=== PATIENT | male | born 1990 | race Caucasian/White ===

== ENCOUNTER 2016-11-06 00:03 | Observation (INO) | payer BC ==
[2016-11-06] MEDS ORDERED: NS 0.9% 1000 ML* 1,000 ML IV SCH (00:15)
[2016-11-06] MEDS ORDERED: NS 0.9% 1000 ML* 1,000 ML IV ONE ×3 (00:19→02:42)
[2016-11-06] MEDS ORDERED: Morphine INJ* 4 MG/ML 1 ML SYRINGE IV ONE ×2 (00:19→00:43)
[2016-11-06] MEDS ORDERED: Ondansetron INJ* 2 MG/ML VIAL IV ONE (00:19)
[2016-11-06] MEDS ORDERED: Nitroglycerin TAB 0.4 MG* 0.4 MG TAB SL ONE ×2 (00:26→00:43)
[2016-11-06 00:45] LABS: ALT 22 U/L (7-52); AST 25 U/L (13-39); Albumin 4.7 g/dL (3.2-5.2); Alkaline Phosphatase 55 U/L (34-104); BUN/Creatinine Ratio 11.4 (8-20); Blood Urea Nitrogen 13 mg/dL (6-24); C Reactive Protein 1.91 mg/L (< 5.00); Calcium 9.7 mg/dL (8.6-10.3); Chloride 106 mmol/L (101-111); Creatine Kinase 340 U/L (10-223); EGFR African American 99.9 (>60); EGFR Non-African American 77.6 (>60); Globulin 2.5 g/dL (2-4); Glucose 79 mg/dL (70-100); Lipase 26 U/L (11.0-82.0); Magnesium 2.5 mg/dL (1.9-2.7); Potassium 3.6 mmol/L (3.5-5.0); Sodium 138 mmol/L (133-145); Total Protein 7.2 g/dL (6.4-8.9)
[2016-11-06] MEDS ORDERED: LORazepam INJ* 2 MG/ML 1 ML VIAL IV ONE (00:46)
[2016-11-06 00:47] LABS: Anion Gap 19 mmol/L (2-11); CO2 Carbon Dioxide 13 mmol/L (22-32)
[2016-11-06 00:53] LABS: TSH (Thyroid Stimulating Horm) 3.11 mcIU/mL (0.34-5.60)
[2016-11-06 01:21] LABS: Hematocrit 49 % (42-52); Hemoglobin 16.6 g/dl (14.0-18.0); Mean Corpuscular HGB Conc 34 g/dl (31-36); Mean Corpuscular Hemoglobin 30 pg (27-31); Mean Corpuscular Volume 87 fL (80-94); Mean Platelet Volume 8 um3 (7.4-10.4); Red Blood Count 5.58 10^6/ul (4.0-5.4); Red Cell Distribution Width 14 % (10.5-15); White Blood Count 8.6 10^3/ul (3.5-10.8)
[2016-11-06 01:39] LABS: Acetaminophen < 15 mcg/mL; Alcohol 111 mg/dL (<10); Salicylate < 2.50 mg/dL (<30)
[2016-11-06] MEDS ORDERED: Iohexol 350* (CONTRAST) 500 ML MDV IV ONE (02:06)
[2016-11-06 02:35] LABS: Urine Bacteria Absent (Absent); Urine Bilirubin Negative (Negative); Urine Glucose Negative (Negative); Urine Nitrite Negative (Negative)
[2016-11-06 02:46] LABS: Benzodiazepine Urine Screen None Detected (None Detect)
[2016-11-06 03:37] LABS: BUN/Creatinine Ratio 13.2 (8-20); Calcium 7.7 mg/dL (8.6-10.3); EGFR African American 159.4 (>60); Potassium 3.8 mmol/L (3.5-5.0)
[2016-11-06 03:39] LABS: Troponin I 0.03 ng/mL (<0.04)
[2016-11-06] MEDS ORDERED: Ketorolac INJ* 30 MG/ML 1 ML VIAL IV ONE (04:36)
[2016-11-06 06:45] LABS: BUN/Creatinine Ratio 10.8 (8-20); Calcium 8.1 mg/dL (8.6-10.3); EGFR African American 126.3 (>60); EGFR Non-African American 98.2 (>60); Potassium 4.1 mmol/L (3.5-5.0)
[2016-11-06 06:48] LABS: Troponin I 0.04 ng/mL (<0.04)
--- NOTE | 2016-11-06 07:48 | RAD ---
HISTORY: Chest pain COMPARISONS: April 24, 2015 VIEWS:1: Single frontal portable view of the chest at 12:38 AM FINDINGS: LINES AND TUBES: None. CARDIOMEDIASTINAL SILHOUETTE: The cardiomediastinal silhouette is normal for portable technique. PLEURA: The costophrenic angles are sharp. No pleural abnormalities are noted. LUNG PARENCHYMA: The lungs are clear. ABDOMEN: The upper abdomen is clear. There is no subphrenic gas. BONES AND SOFT TISSUES: No bone or soft tissue abnormalities are noted. IMPRESSION: NO ACTIVE CARDIOPULMONARY DISEASE.
--- NOTE | 2016-11-06 07:59 | RAD ---
HISTORY: Chest pain COMPARISONS: March 27, 2013 TECHNIQUE: Multiple contiguous axial CT scans of the chest were obtained after the administration of nonionic intravenous contrast, timed to the pulmonary arterial phase of contrast enhancement.. Coronal and sagittal multiplanar reformations are also submitted for review. FINDINGS: NECK AND THYROID: The lower neck and thyroid are unremarkable. CHEST WALL: There is a 1.4 cm short axis left axillary lymph node HEART AND PERICARDIUM: The heart is unremarkable. AORTA AND PULMONARY VASCULATURE: There is no pulmonary arterial filling defect to suggest pulmonary embolism. There is no linear filling defect within the aorta to suggest aortic dissection. MEDIASTINUM: There is no mediastinal lymphadenopathy by size criteria. MARIAJOSE: There is no hilar lymphadenopathy by size criteria. AIRWAY AND ESOPHAGUS: The airway is unremarkable, without endobronchial filling defect. The esophagus is grossly normal. LUNG PARENCHYMA: The lungs are clear. PLEURA: No pleural abnormalities are noted. UPPER ABDOMEN: The spleen is at the upper normal in size. BONES AND SOFT TISSUES: No bone or soft tissue abnormalities are noted. OTHER: None. IMPRESSION: 1. NO PULMONARY ARTERIAL FILLING DEFECT TO SUGGEST PULMONARY EMBOLISM. 2. ENLARGED LEFT AXILLARY LYMPH NODE. THE SPLEEN IS AT THE UPPER LIMITS OF NORMAL IN SIZE.
[2016-11-06] MEDS ORDERED: Al Hydrox/Mg Hydrox/Simet LIQ* 30 ML UDC PO PRN (09:14)
[2016-11-06] MEDS ORDERED: Acetaminophen TAB* 325 MG PO PRN (09:14)
--- NOTE | 2016-11-06 09:16 | ECHO ---
Patient: SARA AYALA [facility] Rec#: [id number] : 1990 Date: 11/06/2016 Age: 26y Height: 172.72 cm / 68.0 in Weight: 81.65 kg / 180.0 lbs Sex: M BSA: 1.95 Room#: ED 15 Admit Date#: 11/06/2016 Type: Outpatient Referring: Nicolás Abbott MD Reading: Diana Hall MD [employer]: Kirsten Larsen,RDCS,RDMS CC: Amol Casillas MD Transthoracic Echocardiogram Indication: CP, Abn Troponin BP: 112/66 HR: 87 Rhythm: NSR Findings History: CO, DVT, smoker Technical Comments: The study quality is fair. Completed 904 Left Ventricle: The left ventricular chamber size is normal. Mild concentric left ventricular hypertrophy is observed. Global left ventricular wall motion and contractility are within normal limits. The estimated ejection fraction is 50-55%. Normal left ventricular diastolic filling is observed. Left Atrium: The left atrial chamber size is normal. Right Ventricle: The right ventricular chamber size and systolic function are within normal limits. Right Atrium: The right atrial cavity size is normal. Aortic Valve: There is no evidence of aortic valve thickening.Leaflets are thin and show good excursion, can't confirm if trileaflet. Systolic excursion of the aortic valve is normal. There is no evidence of aortic regurgitation. There is no evidence of aortic stenosis. Mitral Valve: The mitral valve leaflets appear normal. There is no evidence of mitral regurgitation. There is no evidence of mitral stenosis. Tricuspid Valve: The tricuspid valve leaflets are normal. There is trace tricuspid regurgitation. Unable to estimate the right ventricular systolic pressure. Pulmonic Valve: The pulmonic valve appears normal. There is mild to moderate pulmonic regurgitation. Pericardium: There is no significant pericardial effusion. Aorta: The aortic root appears normal. There is no dilatation of the aortic arch. Pulmonary Artery: The main pulmonary artery appears normal. Venous: The inferior vena cava appears normal in size. There is a greater than 50% respiratory change in the inferior vena cava dimension. Conclusions Mild concentric left ventricular hypertrophy is observed. Global left ventricular wall motion and contractility are within normal limits. The estimated ejection fraction is 50-55%. Normal left ventricular diastolic filling is observed. The right ventricular chamber size and systolic function are within normal limits. All valve leaflets are thin with good excursion. There is mild to moderate pulmonic regurgitation. Compared with prior echo of 03/28/13, the degree of PI estimated higher, 2013 study confirmed aortic valve trileaflet, LVH is new, systolic function is stable. Measurements Name Value Normal Range RVIDd (AP) 2D 3.1 cm (0.9 - 2.6) RVDdMajor (2D) 3.7 cm (2.2 - 4.4) RAd ISD 4CH 4.5 cm (3.4 - 4.9) RA (A4C)W 4.1 cm (2.9 - 4.6) IVSd (2D) 1.1 cm (0.6 - 1) LVPWd (2D) 1.1 cm (0.6 - 1) LVIDd (2D) 4.4 cm (3.6 - 5.4) LVIDs (2D) 3.3 cm - LV FS (2D) 26 % (25 - 45) Aortic Annulus 2 cm (1.4 - 2.6) Ao root diameter (2D) 2.7 cm (2.1 - 3.5) Ascending Ao 2.5 cm (2.1 - 3.4) Aortic arch 2.6 cm (1.8 - 3.4) LA dimension (AP) 2D 3.4 cm (2.3 - 3.8) LAd ISD 4CH 5.2 cm (2.9 - 5.3) LA ISD 4CH W 4.2 cm (2.5 - 4.5) Name Value Normal Range LA ESV SP 4CH (A/L) 55.04 ml - LA ESV SP 2CH (A/L) 40.35 ml - LA ESV BP (A/L) 49.5 ml - LA ESV BP (A/L) index 25.3 ml/m2 - LA ESV SP 4CH (MOD) 52.56 ml - LA ESV SP 2CH (MOD) 36.53 ml - Name Value Normal Range MV E-wave Vmax 1 m/sec - MV deceleration time 170.5 msec - MV A-wave Vmax 0.4 m/sec - MV E:A ratio 2.5 ratio - P. vein S-wave Vmax 0.4 m/sec - P. vein D-wave Vmax 0.6 m/sec - P. vein S:D Vmax ratio 0.7 ratio - P. vein A-wave duration 129.2 msec - LV septal e' Vmax 0.14 m/sec - LV lateral e' Vmax 0.13 m/sec - LV E:e' septal ratio 7.1 ratio - LV E:e' lateral ratio 7.7 ratio - Name Value Normal Range AV Vmax 1.5 m/sec - AV VTI 31.7 cm - AV peak gradient 9 mmHg - AV mean gradient 5.4 mmHg - LVOT Vmax 1.1 m/sec - LVOT VTI 22.5 cm - LVOT peak gradient 5 mmHg - LVOT mean gradient 3.2 mmHg - HENRIQUE Vmax 1 m/sec - Name Value Normal Range RAP 8 mmHg - IVC diameter 1.9 cm - Name Value Normal Range PV Vmax 1.1 m/sec - PV peak gradient 5 mmHg -
[2016-11-06 10:43] LABS: Erythrocyte Sed Rate 2 mm/Hr (0-14)
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
--- NOTE | 2016-11-06 16:55 | HP ---
HISTORY AND PHYSICAL:* ADDENDUM: In regards to the patient's 1.4-cm left axillary lymph node. The patient does not have history of any upper respiratory infection recently. The norm is up to 1 cm. At this point, this needs to be reevaluated by primary care physician in approximately 3 to 4 weeks for resolution. I will refer for an outpatient evaluation for a followup of this particular problem. [id number]/[id number] #: [id number] MTDD
--- NOTE | 2016-11-06 16:58 | RAD ---
INDICATION: Evaluate for metallic foreign body. TECHNIQUE: Frontal and lateral views of the orbits were obtained. FINDINGS: No metallic foreign body is seen. The paranasal sinuses appear clear. There is mild deviation of the nasal septum toward the left side. IMPRESSION: NO EVIDENCE FOR METALLIC FOREIGN BODY.
[2016-11-06] MEDS ORDERED: Ibuprofen ADULT LIQ* 600 MG/30 ML UDC PO PRN (17:15)
--- NOTE | 2016-11-06 17:27 | RAD ---
INDICATION: Syncope. COMPARISON: There are no prior studies available for comparison. TECHNIQUE: Sagittal T1, axial T1, T2, susceptibility, FLAIR and diffusion weighted images were obtained. FINDINGS: The ventricles, cisterns and sulci appear to be within normal limits. No significant focal abnormality or mass effect is seen. No areas of restricted diffusion are present. There is no evidence for infarct or hemorrhage. The visualized portion of the paranasal sinuses and mastoid air cells appear clear. IMPRESSION: NEGATIVE EXAM.
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
[2016-11-06] MEDS ORDERED: Nicotine Inhaler* 10 MG AMP INH PRN (19:34)
[2016-11-06] MEDS ORDERED: Mouth Piece, Nicotine* 1 EACH CARTRIDGE INH PRN (19:34)
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
--- NOTE | 2016-11-06 22:21 | EEG ---
ELECTROENCEPHALOGRAPHY: DATE OF STUDY: 11/06/16 REFERRING PHYSICIAN: Dr. Sweet. LOCATION: He is an inpatient in room 447. CHIEF COMPLAINT: Episode of loss of consciousness, chest pain, arm numbness. EEG DESCRIPTION: This 16-channel EEG is remarkable for background activity at the onset of the tracing consisting of a posterior alpha rhythm at about 9-1/2 to 10 cycles per second, which is symmetrical and suppressed by eye opening. The patient rapidly drowses and falls asleep with vertex sharp waves, K- complexes, and sleep spindles noted. The patient drowses and sleeps through the majority of the recording. There are brief arousals with normal arousal responses. Activation procedures are not attempted. There were no focal, lateralized, or epileptiform abnormalities. INTERPRETATION: Normal awake and asleep EEG. [id number]/[facility] #: [id number] MTDD
[2016-11-07 07:41] VITALS: BP 150/73
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
--- NOTE | 2016-11-11 10:53 | ED ---
Brittanie Vaughan Salem, scribed for Nicolás Abbott MD on 11/06/16 at 0027 . HPI Chest Pain - HPI Summary HPI Summary: Patient is a 26 y/o M who presents to the ED with left-sided 7-8/10 pain CP for the last hour. He reports SOB and nausea, but denies recent trauma. Pt states that he was consuming EtOH upon onset. He reports hx of CAD and LA 3 years ago. - History of Current Complaint Chief Complaint: EDChestPainROMI Time Seen by Provider: 11/06/16 00:04 Hx Obtained From: Patient Onset/Duration: Started Minutes Ago, Atraumatic, Still Present Timing: Constant Initial Severity: Moderate Current Severity: Moderate Pain Intensity: 10 Pain Scale Used: 0-10 Numeric Chest Pain Location: Left Anterior Chest Pain Radiates: No Aggravating Factor(s): Nothing Alleviating Factor(s): Nothing Associated Signs and Symptoms: Positive: Chest Pain, Shortness of Breath, Nausea - Allergy/Home Medications Allergies/Adverse Reactions: Allergies Allergy/AdvReac Type Severity Reaction Status Date / Time No Known Allergies Allergy Verified 11/06/16 06:50 PMH/Surg Hx/FS Hx/Imm Hx Endocrine/Hematology History: Denies: Hx Diabetes, Hx Thyroid Disease Cardiovascular History: Reports: Hx Coronary Artery Disease, Hx Deep Vein Thrombosis - possibly DVT in arm, Hx Myocardial Infarction Denies: Hx Hypertension Respiratory History: Denies: Hx Asthma, Hx Chronic Obstructive Pulmonary Disease (COPD) GI History: Denies: Hx Ulcer History: Reports: Other Problems/Disorders - lacerated kidney Denies: Hx Renal Disease Infectious Disease History: No Infectious Disease History: Denies: Hx Hepatitis, Hx Human Immunodeficiency Virus (HIV), Traveled Outside the [place] in Last 30 Days - Family History Known Family History: Positive: Cardiac Disease - Chest discomfort - father. - Social History Alcohol Use: Weekly Substance Use Type: Reports: None Hx Tobacco Use: Yes Smoking Status (MU): Light Every Day Tobacco Smoker Review of Systems Positive: Chest Pain Positive: Shortness Of Breath Positive: Nausea All Other Systems Reviewed And Are Negative: Yes Physical Exam Triage Information Reviewed: Yes Vital Signs On Initial Exam: Initial Vitals Temp Pulse Resp BP Pulse Ox 99 F 120 20 138/74 98 11/06/16 00:05 11/06/16 00:05 11/06/16 00:05 11/06/16 00:05 11/06/16 00:05 Vital Signs Reviewed: Yes Appearance: Positive: Well-Appearing, Pain Distress - Moderate. Skin: Positive: Warm, Skin Color Reflects Adequate Perfusion, Dry Head/Face: Positive: Normal Head/Face Inspection Eyes: Positive: EOMI, JUANI Neck: Positive: Supple, Nontender Respiratory/Lung Sounds: Positive: Clear to Auscultation, Breath Sounds Present , Other - Tenderness to palpation over sternum. Cardiovascular: Positive: RRR Abdomen Description: Positive: Soft, Other: - Tenderness to palpation over epigastrium. Musculoskeletal: Positive: Normal, Strength/ROM Intact Neurological: Positive: Normal, Sensory/Motor Intact, Alert, Oriented to Person Place, Time Psychiatric: Positive: Affect/Mood Appropriate Diagnostics - Vital Signs Vital Signs Temp Pulse Resp BP Pulse Ox 11/06/16 00:05 99 F 120 20 138/74 98 - Laboratory Lab Results: Lab Results 11/06/16 11/06/16 11/06/16 Range/Units 00:11 00:11 00:11 WBC 8.6 (3.5-10.8) 10^3/ul RBC 5.58 H (4.0-5.4) 10^6/ul Hgb 16.6 (14.0-18.0) g/dl Hct 49 (42-52) % MCV 87 (80-94) fL MCH 30 (27-31) pg MCHC 34 (31-36) g/dl RDW 14 (10.5-15) % Plt Count 213 (150-450) 10^3/ul MPV 8 (7.4-10.4) um3 Neut % (Auto) 57.1 (38-83) % Lymph % (Auto) 30.2 (25-47) % Baker % (Auto) 11.0 H (1-9) % Eos % (Auto) 1.4 (0-6) % Baso % (Auto) 0.3 (0-2) % Absolute Neuts (auto) 4.9 (1.5-7.7) 10^3/ul Absolute Lymphs (auto) 2.6 (1.0-4.8) 10^3/ul Absolute Monos (auto) 0.9 H (0-0.8) 10^3/ul Absolute Eos (auto) 0.1 (0-0.6) 10^3/ul Absolute Basos (auto) 0 (0-0.2) 10^3/ul Absolute Nucleated RBC 0.01 10^3/ul Nucleated RBC % 0.1 ESR 2 (0-14) mm/Hr INR (Anticoag Therapy) 0.93 (0.89-1.11) APTT 24.6 L (26.0-36.3) seconds D-Dimer, Quantitative 511 H (Less Than 230) ng/mL Sodium 138 (133-145) mmol/L Potassium 3.6 (3.5-5.0) mmol/L Chloride 106 (101-111) mmol/L Carbon Dioxide 13 L* (22-32) mmol/L Anion Gap 19 H (2-11) mmol/L BUN 13 (6-24) mg/dL Creatinine 1.14 (0.67-1.17) mg/dL Est GFR ( Amer) 99.9 (>60) Est GFR (Non-Af Amer) 77.6 (>60) BUN/Creatinine Ratio 11.4 (8-20) Glucose 79 (70-100) mg/dL Lactic Acid (0.5-2.0) mmol/L Calcium 9.7 (8.6-10.3) mg/dL Magnesium 2.5 (1.9-2.7) mg/dL Total Bilirubin 0.40 (0.2-1.0) mg/dL AST 25 (13-39) U/L ALT 22 (7-52) U/L Alkaline Phosphatase 55 (34-104) U/L Total Creatine Kinase 340 H (10-223) U/L CK-MB (CK-2) 6.6 H (0.6-6.3) ng/mL Troponin I 0.00 (<0.04) ng/mL C-Reactive Protein 1.91 (< 5.00) mg/L B-Natriuretic Peptide ( - 100) pg/mL Total Protein 7.2 (6.4-8.9) g/dL Albumin 4.7 (3.2-5.2) g/dL Globulin 2.5 (2-4) g/dL Albumin/Globulin Ratio 1.9 (1-3) Lipase 26 (11.0-82.0) U/L TSH 3.11 (0.34-5.60) mcIU/mL Urine Color Urine Appearance Urine pH (5-9) Ur Specific [place] (1.010-1.030) Urine Protein (Negative) Urine Ketones (Negative) Urine Blood (Negative) Urine Nitrate (Negative) Urine Bilirubin (Negative) Urine Urobilinogen (Negative) Ur Leukocyte Esterase (Negative) Urine WBC (Auto) (Absent) Urine RBC (Auto) (Absent) Urine Bacteria (Absent) Urine Glucose (Negative) Salicylates < 2.50 (<30) mg/dL Urine Opiates Screen (None Detect) Acetaminophen < 15 mcg/mL Ur Barbiturates Screen (None Detect) Ur Phencyclidine Scrn (None Detect) Ur Amphetamines Screen (None Detect) U Benzodiazepines Scrn (None Detect) Urine Cocaine Screen (None Detect) U Cannabinoids Screen (None Detect) Serum Alcohol 111 H (<10) mg/dL Lyme Disease Serology (Negative) 11/06/16 11/06/16 11/06/16 Range/Units 00:11 00:11 02:13 WBC (3.5-10.8) 10^3/ul RBC (4.0-5.4) 10^6/ul Hgb (14.0-18.0) g/dl Hct (42-52) % MCV (80-94) fL MCH (27-31) pg MCHC (31-36) g/dl RDW (10.5-15) % Plt Count (150-450) 10^3/ul MPV (7.4-10.4) um3 Neut % (Auto) (38-83) % Lymph % (Auto) (25-47) % Baker % (Auto) (1-9) % Eos % (Auto) (0-6) % Baso % (Auto) (0-2) % Absolute Neuts (auto) (1.5-7.7) 10^3/ul Absolute Lymphs (auto) (1.0-4.8) 10^3/ul Absolute Monos (auto) (0-0.8) 10^3/ul Absolute Eos (auto) (0-0.6) 10^3/ul Absolute Basos (auto) (0-0.2) 10^3/ul Absolute Nucleated RBC 10^3/ul Nucleated RBC % ESR (0-14) mm/Hr INR (Anticoag Therapy) (0.89-1.11) APTT (26.0-36.3) seconds D-Dimer, Quantitative (Less Than 230) ng/mL Sodium (133-145) mmol/L Potassium (3.5-5.0) mmol/L Chloride (101-111) mmol/L Carbon Dioxide (22-32) mmol/L Anion Gap (2-11) mmol/L BUN (6-24) mg/dL Creatinine (0.67-1.17) mg/dL Est GFR ( Amer) (>60) Est GFR (Non-Af Amer) (>60) BUN/Creatinine Ratio (8-20) Glucose (70-100) mg/dL Lactic Acid 9.5 H* (0.5-2.0) mmol/L Calcium (8.6-10.3) mg/dL Magnesium (1.9-2.7) mg/dL Total Bilirubin (0.2-1.0) mg/dL AST (13-39) U/L ALT (7-52) U/L Alkaline Phosphatase (34-104) U/L Total Creatine Kinase (10-223) U/L CK-MB (CK-2) (0.6-6.3) ng/mL Troponin I (<0.04) ng/mL C-Reactive Protein (< 5.00) mg/L B-Natriuretic Peptide 16 ( - 100) pg/mL Total Protein (6.4-8.9) g/dL Albumin (3.2-5.2) g/dL Globulin (2-4) g/dL Albumin/Globulin Ratio (1-3) Lipase (11.0-82.0) U/L TSH (0.34-5.60) mcIU/mL Urine Color Straw Urine Appearance Clear Urine pH 6.0 (5-9) Ur Specific [place] 1.009 L (1.010-1.030) Urine Protein Negative (Negative) Urine Ketones Negative (Negative) Urine Blood 1+ H (Negative) Urine Nitrate Negative (Negative) Urine Bilirubin Negative (Negative) Urine Urobilinogen Negative (Negative) Ur Leukocyte Esterase Negative (Negative) Urine WBC (Auto) Trace(0-5/hpf) (Absent) Urine RBC (Auto) Trace(0-2/hpf) (Absent) Urine Bacteria Absent (Absent) Urine Glucose Negative (Negative) Salicylates (<30) mg/dL Urine Opiates Screen (None Detect) Acetaminophen mcg/mL Ur Barbiturates Screen (None Detect) Ur Phencyclidine Scrn (None Detect) Ur Amphetamines Screen (None Detect) U Benzodiazepines Scrn (None Detect) Urine Cocaine Screen (None Detect) U Cannabinoids Screen (None Detect) Serum Alcohol (<10) mg/dL Lyme Disease Serology (Negative) 11/06/16 11/06/16 11/06/16 Range/Units 02:13 03:10 03:10 WBC (3.5-10.8) 10^3/ul RBC (4.0-5.4) 10^6/ul Hgb (14.0-18.0) g/dl Hct (42-52) % MCV (80-94) fL MCH (27-31) pg MCHC (31-36) g/dl RDW (10.5-15) % Plt Count (150-450) 10^3/ul MPV (7.4-10.4) um3 Neut % (Auto) (38-83) % Lymph % (Auto) (25-47) % Baker % (Auto) (1-9) % Eos % (Auto) (0-6) % Baso % (Auto) (0-2) % Absolute Neuts (auto) (1.5-7.7) 10^3/ul Absolute Lymphs (auto) (1.0-4.8) 10^3/ul Absolute Monos (auto) (0-0.8) 10^3/ul Absolute Eos (auto) (0-0.6) 10^3/ul Absolute Basos (auto) (0-0.2) 10^3/ul Absolute Nucleated RBC 10^3/ul Nucleated RBC % ESR (0-14) mm/Hr INR (Anticoag Therapy) (0.89-1.11) APTT (26.0-36.3) seconds D-Dimer, Quantitative (Less Than 230) ng/mL Sodium 140 (133-145) mmol/L Potassium 3.8 (3.5-5.0) mmol/L Chloride 112 H (101-111) mmol/L Carbon Dioxide 21 L (22-32) mmol/L Anion Gap 7 (2-11) mmol/L BUN 10 (6-24) mg/dL Creatinine 0.76 (0.67-1.17) mg/dL Est GFR ( Amer) 159.4 (>60) Est GFR (Non-Af Amer) 124.0 (>60) BUN/Creatinine Ratio 13.2 (8-20) Glucose 85 (70-100) mg/dL Lactic Acid 1.7 (0.5-2.0) mmol/L Calcium 7.7 L (8.6-10.3) mg/dL Magnesium (1.9-2.7) mg/dL Total Bilirubin (0.2-1.0) mg/dL AST (13-39) U/L ALT (7-52) U/L Alkaline Phosphatase (34-104) U/L Total Creatine Kinase (10-223) U/L CK-MB (CK-2) (0.6-6.3) ng/mL Troponin I 0.03 (<0.04) ng/mL C-Reactive Protein (< 5.00) mg/L B-Natriuretic Peptide ( - 100) pg/mL Total Protein (6.4-8.9) g/dL Albumin (3.2-5.2) g/dL Globulin (2-4) g/dL Albumin/Globulin Ratio (1-3) Lipase (11.0-82.0) U/L TSH (0.34-5.60) mcIU/mL Urine Color Urine Appearance Urine pH (5-9) Ur Specific [place] (1.010-1.030) Urine Protein (Negative) Urine Ketones (Negative) Urine Blood (Negative) Urine Nitrate (Negative) Urine Bilirubin (Negative) Urine Urobilinogen (Negative) Ur Leukocyte Esterase (Negative) Urine WBC (Auto) (Absent) Urine RBC (Auto) (Absent) Urine Bacteria (Absent) Urine Glucose (Negative) Salicylates (<30) mg/dL Urine Opiates Screen Presumptive positive H (None Detect) Acetaminophen mcg/mL Ur Barbiturates Screen None detected (None Detect) Ur Phencyclidine Scrn None detected (None Detect) Ur Amphetamines Screen None detected (None Detect) U Benzodiazepines Scrn None detected (None Detect) Urine Cocaine Screen None detected (None Detect) U Cannabinoids Screen None detected (None Detect) Serum Alcohol (<10) mg/dL Lyme Disease Serology (Negative) 11/06/16 11/06/16 11/06/16 Range/Units 06:08 06:08 09:08 WBC (3.5-10.8) 10^3/ul RBC (4.0-5.4) 10^6/ul Hgb (14.0-18.0) g/dl Hct (42-52) % MCV (80-94) fL MCH (27-31) pg MCHC (31-36) g/dl RDW (10.5-15) % Plt Count (150-450) 10^3/ul MPV (7.4-10.4) um3 Neut % (Auto) (38-83) % Lymph % (Auto) (25-47) % Baker % (Auto) (1-9) % Eos % (Auto) (0-6) % Baso % (Auto) (0-2) % Absolute Neuts (auto) (1.5-7.7) 10^3/ul Absolute Lymphs (auto) (1.0-4.8) 10^3/ul Absolute Monos (auto) (0-0.8) 10^3/ul Absolute Eos (auto) (0-0.6) 10^3/ul Absolute Basos (auto) (0-0.2) 10^3/ul Absolute Nucleated RBC 10^3/ul Nucleated RBC % ESR (0-14) mm/Hr INR (Anticoag Therapy) (0.89-1.11) APTT (26.0-36.3) seconds D-Dimer, Quantitative (Less Than 230) ng/mL Sodium 139 (133-145) mmol/L Potassium 4.1 (3.5-5.0) mmol/L Chloride 111 (101-111) mmol/L Carbon Dioxide 22 (22-32) mmol/L Anion Gap 6 (2-11) mmol/L BUN 10 (6-24) mg/dL Creatinine 0.93 (0.67-1.17) mg/dL Est GFR ( Amer) 126.3 (>60) Est GFR (Non-Af Amer) 98.2 (>60) BUN/Creatinine Ratio 10.8 (8-20) Glucose 87 (70-100) mg/dL Lactic Acid (0.5-2.0) mmol/L Calcium 8.1 L (8.6-10.3) mg/dL Magnesium (1.9-2.7) mg/dL Total Bilirubin (0.2-1.0) mg/dL AST (13-39) U/L ALT (7-52) U/L Alkaline Phosphatase (34-104) U/L Total Creatine Kinase 401 H (10-223) U/L CK-MB (CK-2) (0.6-6.3) ng/mL Troponin I 0.04 H* 0.03 (<0.04) ng/mL C-Reactive Protein (< 5.00) mg/L B-Natriuretic Peptide ( - 100) pg/mL Total Protein (6.4-8.9) g/dL Albumin (3.2-5.2) g/dL Globulin (2-4) g/dL Albumin/Globulin Ratio (1-3) Lipase (11.0-82.0) U/L TSH (0.34-5.60) mcIU/mL Urine Color Urine Appearance Urine pH (5-9) Ur Specific [place] (1.010-1.030) Urine Protein (Negative) Urine Ketones (Negative) Urine Blood (Negative) Urine Nitrate (Negative) Urine Bilirubin (Negative) Urine Urobilinogen (Negative) Ur Leukocyte Esterase (Negative) Urine WBC (Auto) (Absent) Urine RBC (Auto) (Absent) Urine Bacteria (Absent) Urine Glucose (Negative) Salicylates (<30) mg/dL Urine Opiates Screen (None Detect) Acetaminophen mcg/mL Ur Barbiturates Screen (None Detect) Ur Phencyclidine Scrn (None Detect) Ur Amphetamines Screen (None Detect) U Benzodiazepines Scrn (None Detect) Urine Cocaine Screen (None Detect) U Cannabinoids Screen (None Detect) Serum Alcohol (<10) mg/dL Lyme Disease Serology Negative (Negative) Result Diagrams: 11/06/16 00:11 11/06/16 06:08 Diagnostic Studies Comment: Carbon dioxide: 13. Lactic acid: 9.5. Trop 1: 0.00 Lab Statement: Any lab studies that have been ordered have been reviewed, and results considered in the medical decision making process. - Radiology CXR Radiology Interpretation Completed By: ED Physician - Normal. - CT CHEST/THORAX CT Interpretation Completed By: Radiologist - FINDINGS: THYROID: Thyroid gland is unremarkable. CARDIOVASCULAR: The heart and pericardium appear normal. The thoracic aorta is normal in caliber. No dissection. No hematoma. There is no visible pulmonary embolism. LUNGS: There is no airspace consolidation, pleural effusion or pneumothorax. LYMPH NODES: Nonspecific axillary and mediastinal small lymph nodes. UPPER ABD: Hepatosplenomegaly. BONES: The images osseous structures are normal. - EKG 0004 EKG Interpretation: Sinus tachycardia @ 118. Flip Ts inferior leads. Similar to previous EKGs. 0121 EKG Interpretation: NSR @ 82 bpm. Early repolarization. Flipped 3s and avf. Re-Evaluation - Re-Evaluation First Eval Re-Evaluation Time: 03:58 Comment: Informed pt of imaging results. Second Eval Re-Evaluation Time: 04:41 Comment: Informed pt of plan. Chest Pain Course/Dx - Course Course Of Treatment: NO CRITICAL CARE TIME. Assessment/Plan: DICUSSED WITH CARDIOLOGY, DR MULTANI, ADMIT HOSPITALIST STABLE. - Diagnoses Provider Diagnoses: Chest pain - Provider Notifications Discussed Care Of Patient With: Gurpreet Mensah Time Discussed With Above Provider: 02:48 Instructed by Provider To: Other - Dr. Multani @ 0654. Discharge - Discharge Plan Condition: Fair Disposition: HOME The documentation as recorded by the Brittanie burns Salem accurately reflects the service I personally performed and the decisions made by me, Nicolás Abbott MD.
== END 2016-11-07 09:16 | disposition home or self-care (01) ==
LOC: ED 00:03 → MEDTELE 09:24
PROVIDERS: ADMIT Internal Medicine; ATTEND Internal Medicine
DX: R55 Syncope and collapse (principal); R07.9 Chest pain, unspecified; R20.9 Unspecified disturbances of skin sensation; R00.0 Tachycardia, unspecified; I51.7 Cardiomegaly; F17.210 Nicotine dependence, cigarettes, uncomplicated
CPT/HCPCS: 36415; 70030; 70551; 71010; 71275; 80048; 80053; 80307; 80320; 80329; 81003; 81015; 82550; 82553; 83605; 83690; 83735; 83880; 84443; 84484; 85025; 85379; 85610; 85652; 85730; 86140; 86618; 93005; 93306; 95819; 96361; 96374; 96375; 96376; 99284; 99406; A9270-GY; G0378; G0480; J1885; J2060; J2270; J2405; Q9967

== ENCOUNTER 2017-02-24 10:40 | Day surgery (SDC) | payer BC, OTHER ==
[~2017-02-24 10:40] MED LIST: Buffered Lidocaine 0.9% SYRIN* 5 ML/SYR SYRINGE INTRADERM ONE; Dexamethasone IV* 4 MG/ML 1 ML (4 MG) IV SLOW PU ONE; Famotidine IV* 10 MG/ML 2 ML (20 mg) IV ONE
[2017-02-24] MEDS ORDERED: fentaNYL* 50 MCG/ML 2 ML VIAL (100 MCG VIAL) ONE ×2 (11:24→15:36)
[2017-02-24] MEDS ORDERED: Midazolam* 1 MG/ML 2 ML VIAL (2 MG) ONE (11:24)
[2017-02-24] MEDS ORDERED: Lidocaine 2% PF * 5 ML VIAL ONE ×2 (11:25→15:04)
[2017-02-24] MEDS ORDERED: Ketorolac INJ* 30 MG/ML 1 ML VIAL ONE ×2 (11:25→14:19)
[2017-02-24] MEDS ORDERED: Propofol* 10 MG/ML 20 ML BTL IV PUSH ONE ×2 (11:25→11:28)
[2017-02-24] MEDS ORDERED: Ondansetron INJ* 2 MG/ML VIAL ONE ×2 (11:25→14:19)
[2017-02-24] MEDS ORDERED: Dexamethasone IV* 4 MG/ML 1 ML (4 MG) ONE (11:28)
[2017-02-24] MEDS ORDERED: Famotidine IV* 10 MG/ML 2 ML (20 mg) ONE (11:28)
[2017-02-24] MEDS ORDERED: ceFAZolin 2 GM PREMIX (*) 50 ML IVPB ONE (11:28)
[2017-02-24] MEDS ORDERED: Bupivacaine 0.25% SDV* 30 ML ONE (13:12)
[2017-02-24] MEDS ORDERED: HYDROmorphone INJ* 1 MG/ML CARPUJECT SYRINGE IV PRN (14:04)
[2017-02-24] MEDS ORDERED: Acetaminophen TAB* 325 MG PO PRN (14:04)
[2017-02-24] MEDS ORDERED: DiMENhydriNATE IV* 50 MG/ML VIAL IV PUSH PRN (14:04)
[2017-02-24] MEDS ORDERED: oxyCODONE/Acetamin 5/325 MG* TAB PO PRN (14:04)
[2017-02-24] MEDS ORDERED: oxyCODONE TAB* 5 MG TAB PO PRN (14:04)
[2017-02-24] MEDS ORDERED: fentaNYL* 50 MCG/ML 2 ML VIAL (100 MCG VIAL) IV PRN (14:04)
[2017-02-24] MEDS ORDERED: Nalbuphine* 20 MG/ML 1 ML VIAL IV PRN (14:04)
[2017-02-24] MEDS ORDERED: diPHENhydraMINE IV* 50 MG/ML 1 ml VIAL (BENADRYL) IV PRN (14:04)
[2017-02-24] MEDS ORDERED: Succinylcholine* 20 MG/ML 10 ML VIAL ONE (14:19)
[2017-02-24] MEDS ORDERED: Esmolol* 10 MG/ML 10 ML (100 mg) ONE (15:46)
[2017-02-24] MEDS ORDERED: DiMENhydriNATE IV* 50 MG/ML VIAL ONE (16:30)
[2017-02-24] MEDS ORDERED: Ketorolac INJ* 30 MG/ML 1 ML VIAL IV PRN (16:37)
[2017-02-24] MEDS ORDERED: Scopolamine 1.5 mg* PATCH ONE (16:47)
[2017-02-24 17:37] VITALS: BP 125/59
--- NOTE | 2017-02-25 15:53 | OP ---
OPERATIVE REPORT: DATE OF OPERATION: 02/24/17 - RAFY DATE OF : 89 SURGEON: David Conley MD. MEDIA RELATIONS SPECIALIST: FANY Cantu. An assistant project engineer was needed for the entirety of the procedure to aide in positioning of the arm and retraction. ANESTHESIOLOGIST: Dr. Garrett and Dr. Conrad. ANESTHESIA: General. PRE-OP DIAGNOSES: Right index fingertip laceration with radial collateral ligament injury, and FDP laceration, and laceration to both digital nerves at the DIP joint flexion crease. POST-OP DIAGNOSES: Right index fingertip laceration with radial collateral ligament injury, and FDP laceration, and laceration to both digital nerves at the DIP joint flexion crease, radial-sided partial terminal extensor tendon laceration. PROCEDURE PERFORMED: 1. Exploration of penetrating wound, right index finger. 2. Repair of volar plate at distal interphalangeal joint, right index finger. 3. Repair of of radial collateral ligament, right index finger distal interphalangeal joint. 4. Repair of flexor digitorum profundus tendon zone 1 laceration, right index finger. 5. Repair of radial digital nerve at the level of the trifurcation, right index finger. 6. Repair of ulnar digital nerve at the level of the trifurcation, right index finger. INDICATIONS: Leo was at work when he lacerated the right index fingertip with a razor blade. He went to the ER, where it was washed and the skin was closed. He followed up. We talked about risks and benefits. He wanted to proceed. I told him he is almost certainly to have loss of motion in the fingertip and we will trade some stiffness for stability in the fingertip. He elected to proceed. ESTIMATED BLOOD LOSS: 5 mL. COMPLICATIONS: None. FINDINGS: As expected. DESCRIPTION OF PROCEDURE: Leo was seen in the preoperative holding area and the correct side and site of the procedure were identified. We came back to the operating room where anesthesia was induced. The arm was prepped and draped in the usual fashion and appropriate time-out was performed. I begin by exsanguinating the arm with the Esmarch and the tourniquet was inflated to 250 mmHg. I then extended the traumatic transverse laceration in the mid axial line, on the ulnar aspect of the finger, and this was brought back obliquely in Alyssa-type fashion over the proximal phalanx. The ulnar digital neurovascular bundle was identified and the flap was raised off the flexor tendon sheath. The wound was explored. The laceration in the ulnar digital nerve was visualized and the digital nerve proximal stump was freed up and this was set aside for later repair. The FDP tendon was seen just under the A4 juju. The radial digital neurovascular bundle was mobilized and the lacerated stump was set aside for later repair. The fingertip was grossly unstable. He had completely lacerated the radial collateral ligament and the volar plate, and the finger completely hinged over on its dorsal ulnar skin ridge posteriorly. I went ahead and reduced the joint and passed one 0.045 K- wire across the joint to hold it stable. The pin was clipped distal to the fingertip and a pin cap was applied. I then used a 4-0 Ethibond and burying the knots, I placed 3 [id number] sutures to repair the volar plate. This approximated very nicely. I then took the 4-0 Ethibond and placed 2 [id number] sutures to repair the radial collateral ligament. With the volar plate and radial collateral ligament repaired, I then pulled a 2- 0 Prolene pullout suture in the distal stump of the distal tendon. A traction was then pulled on the tendon and the tendon edges were apposed. There was a small stump of distal tendon and this was repaired on the corners to the periostealtendinous tissue with 2 [id number] 3-0 Ethibond sutures. I then placed 1 core 3-0 Ethibond suture in cruciate-type fashion centrally. This provided a excellent tendon apposition. I wanted to reinforce and secure this and so I brought my 2 limbs of my 2-0 Prolene suture around to the sides of the distal phalanx and they exited out dorsally through the sterile matrix. This was done with Anthony needles. This was tied over a small piece of gauze and a button. Once this was secured, I went ahead and turned my attention to the digital nerves. The distal nerves were dissected out with the micro scissors under 3.5 x Loupe magnification. I then used 10-0 nylon suture to repair first the ulnar and then the radial digital nerves. I was able to repair 2 branches of the nerve on the ulnar side and 1 branch of the nerve on the radial side. Once I had the radial and ulnar digital nerves repaired, I went ahead and irrigated out the wound. The laceration in the terminal extensor tendon was small and I elected not to put any stitches in this. The skin was closed with 4-0 Nylon suture. The wound was dressed with Xeroform , 4x4s, sterile Webril, and an Sujit bandage, and a dorsal blocking splint was placed with the wrist in flexion and the MP joints in full flexion, a pin cap was applied on the pin distally. Tourniquet was deflated. The hand pinked up immediately. I did place a digital block prior to dressing the wound. He was then awoken up and taken to the recovery room in stable condition. [id number]/[facility] #: [id number] CARLOS MANUEL
== END 2017-02-24 17:45 | disposition home or self-care (01) ==
LOC: OREAST 10:40
PROVIDERS: ATTEND Orthopaedic Surgery Hand Surgery
DX: S66.120A Laceration of flexor muscle, fascia and tendon of right index finger at wrist and hand level, initial encounter (principal); S64.490A Injury of digital nerve of right index finger, initial encounter; S63.410A Traumatic rupture of collateral ligament of right index finger at metacarpophalangeal and interphalangeal joint, initial encounter; Z72.0 Tobacco use; W26.8XXA Contact with other sharp object(s), not elsewhere classified, initial encounter; Y92.89 Other specified places as the place of occurrence of the external cause; Y99.0 Civilian activity done for income or pay
CPT/HCPCS: A9270-GY; C1776; J0330; J0690; J1100; J1240; J1885; J2250; J2405; J2704; J3010

== ENCOUNTER → 2017-02-28 07:53 | Emergency (ER) | payer BC, OTHER ==
[~2017-02-28 07:53] MED LIST changes: -Buffered Lidocaine 0.9% SYRIN* 5 ML/SYR SYRINGE INTRADERM ONE; -Dexamethasone IV* 4 MG/ML 1 ML (4 MG) IV SLOW PU ONE; -Famotidine IV* 10 MG/ML 2 ML (20 mg) IV ONE; +Morphine INJ* 2 MG/ML 1 ML CARPUJECT IV ONE; +Morphine INJ* 2 MG/ML 1 ML CARPUJECT ONE; +Morphine INJ* 4 MG/ML 1 ML CARPUJECT IV ONE; +NS 0.9% 1000 ML* 1,000 ML IV ONE; +Ondansetron INJ* 2 MG/ML VIAL IV ONE
--- NOTE | 2017-02-28 09:14 | ED ---
Abdominal Pain/Male - HPI Summary HPI Summary: Patient presents to the ED with CC of RUQ pain starting this morning at 5:30am, remains constant, worse with movement and better with rest. The pain does not radiate. Pain is discretely located under the right rib and extends to the right midsternal breast bone. He denies vomiting, diarrhea, constipation or other abdominal pain. Denies urinary symptoms, back pain or BALDERAS. Denies abdominal surgeries. He notes to a lack of appetite. Last PO intake last evening at 8pm. He denies ETOH and drug use. He states he did not eat anything out of the ordinary for him and has never had this before. Denies fevers, sweats, chills, recent illness, recent travel or sick contacts. Recently had surgery on Friday (Dr. 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 He has been taking 2 Hydrocodone's every 4 hours (twice as much as directed he states) d/t uncontrolled pain. He has not been taking other medications. He began this mediation on Friday and denies any problems with taking them. He was also placed on Augmentin - which he has taken before and denies any previous issues with this. He was seen by Dr. Ramirez for elevated troponins and chest pain x 3 in the past year. Cardiac cath in 2012 with no abnormal findings. Also, no EKG changes or Echo findings. He was sent to [facility] in [place] where they again, found no ischemic changes to his heart. He takes no blood thinners and is no longer following up. Last episode October 2016. Denies chest pain and SOB today. Last BM last evening and normal appearing. He denies nausea. Otherwise healthy and takes no other medications at baseline. Patient is a smoker. - History of Current Complaint Chief Complaint: EDAbdPain Stated Complaint: ABD PAIN Time Seen by Provider: 02/28/17 08:39 Hx Obtained From: Patient Onset/Duration: Sudden Onset Timing: Constant Severity Initially: Moderate Severity Currently: Moderate Pain Intensity: 3 Pain Scale Used: 0-10 Numeric Location: Discrete At: RUQ Radiates: No Character: Sharp, Colicy Aggravating Factor(s): Movement Alleviating Factor(s): Position Associated Signs And Symptoms: Positive: Decreased Appetite. Negative: Fever, Cough, Constipation, Urinary Symptoms, Vomiting, Diarrhea, Penile Discharge - Risk Factors Testicular Torsion: Negative Cardiac Risk Factors: Negative - previous elevated trops x 3 - Allergies/Home Medications Allergies/Adverse Reactions: Allergies Allergy/AdvReac Type Severity Reaction Status Date / Time No Known Allergies Allergy Verified 02/24/17 11:08 PMH/Surg Hx/FS Hx/Imm Hx Previously Healthy: Yes Endocrine/Hematology History: Denies: Hx Diabetes, Hx Thyroid Disease Cardiovascular History: Reports: Hx Coronary Artery Disease, Hx Deep Vein Thrombosis - possibly DVT in arm, Hx Hypertension - 2012-FOR 6 MONTHS AFTER CHEST PAIN INCIDENT, Hx Myocardial Infarction, Other Cardiovascular Problems/ Disorders - 10/2016-SAW DR. PONCE FOR Denies: Hx Pacemaker/ICD Respiratory History: Denies: Hx Asthma, Hx Chronic Obstructive Pulmonary Disease (COPD) GI History: Denies: Hx Ulcer History: Reports: Other Problems/Disorders - lacerated kidney-2006 Denies: Hx Dialysis, Hx Renal Disease Sensory History: Denies: Hx Contacts or Glasses, Hx Hearing Aid Opthamlomology History: Denies: Hx Contacts or Glasses Psychiatric History: Denies: Hx Panic Disorder - Surgical History Surgery Procedure, Year, and Place: nasal reconstruction 2000. wisdom teeth removed. 2013-CARDIAC CATHETERIZATION Hx Anesthesia Reactions: No - Immunization History Hx Pertussis Vaccination: No Immunizations Up to Date: Unable to Obtain/Confirm Infectious Disease History: Yes Infectious Disease History: Denies: Hx Hepatitis, Hx Human Immunodeficiency Virus (HIV), Traveled Outside the [place] in Last 30 Days - Family History Known Family History: Positive: Cardiac Disease - Chest discomfort - father. - Social History Alcohol Use: Occasionally Alcohol Amount: "most days" Substance Use Type: Reports: None Hx Tobacco Use: Yes Smoking Status (MU): Light Every Day Tobacco Smoker Amount Used/How Often: 3-5 CIGARETTES PER DAY X 10-11 YEARS Review of Systems - ROS Summary Review of Systems Summary: Constitutional: The patient denies fever, BALDERAS. HEENT: Head: The patient denies headaches or dizziness. Eyes: The patient denies diplopia, blurry vision, eye pain, eye discharge, photophobia. Throat: The patient denies sore throats or hoarseness. Cardiovascular: The patient denies chest pain, palpitations, syncope, night cramps, or orthostasis. Respiratory: The patient denies cough, sputum production, hemoptysis, dyspnea, wheezing. Gastrointestinal: RUQ pain + . Denies other quadrant pain. The patient denies odynophagia, dysphagia, hematemesis, melenemesis. Denies nausea or vomiting. Denies constipation or diarrhea. Genitourinary: Patient denies dysuria, hematuria, or pyuria. Patient denies back pain. Denies vaginal discharge, vaginal bleeding. Denies other urinary symptoms. Endocrine: The patient denies polydipsia, polyuria, or polyphagia. Muscles: The patient denies myalgia, strain or weakness. Joints: The patient denies arthralgia and/or arthritis. Neurologic: The patient denies headache, loss of consciousness, or seizure. Dermatologic: The patient denies hyperpigmentation, rash, or photosensitivity. Constitutional: Negative ENT: Negative Negative: Palpitations, Chest Pain Negative: Shortness Of Breath, Cough Positive: Abdominal Pain. Negative: Vomiting, Diarrhea, Nausea Positive: no symptoms reported, see HPI Negative: Arthralgia, Myalgia Neurological: Negative Psychological: Normal All Other Systems Reviewed And Are Negative: Yes Physical Exam - Summary Physical Exam Summary: Appearance: WDW, comfortable, pleasant, alert Skin: Soft dry skin, no lesions. Nailbeds pink with no cyanosis or clubbing. No petechia noted. Eyes: JUANI, EOMI, Conjunctiva pink with no redness or exudates. Mouth: Dentition without lesions. Moist mucosa Neck: Full range of motion. Palpable thyroid. Trachea at midline. No lymphadenopathy. Pulm: Chest symmetrical expansion. No deformities on posterior chest wall. Lungs clear to auscultation and percussion, without adventitious sounds. CV: No JVD. No deformities on anterior chest wall. Heart soundsRRR, Normal S1 and single S2. No S3, S4, rubs, or murmurs. Carotids 2+ bilaterally without bruits. . exam not performed Abd: + monroy's sign, negative obturators, negative mcburney's point. bowel sounds WNL in all 4 quadrants. No masses or hernias identified. no guarding or distention. Musculoskeletal: Flexion and extension of neck limited d/t pain. Brudzynski and Kernig sign negative. No deformities noted. Pulses full and equal. Neuro: Motor strength is 5/5 in upper and lower extremities bilaterally. A&OX3 Psych: Logical, coherent Triage Information Reviewed: Yes Vital Signs On Initial Exam: Initial Vitals Temp Pulse Resp BP Pulse Ox 98.2 F 67 20 126/75 99 02/28/17 07:59 02/28/17 07:59 02/28/17 07:59 02/28/17 07:59 02/28/17 07:59 Vital Signs Reviewed: Yes Appearance: Positive: Well-Appearing, Well-Nourished Skin: Positive: Warm, Skin Color Reflects Adequate Perfusion Head/Face: Positive: Normal Head/Face Inspection Eyes: Positive: EOMI, JUANI, Conjunctiva Clear Neck: Positive: Supple, No Lymphadenopathy Respiratory/Lung Sounds: Positive: Clear to Auscultation, Breath Sounds Present Cardiovascular: Positive: Normal, RRR, Pulses are Symmetrical in both Upper and Lower Extremities Abdomen Description: Positive: No Organomegaly, Soft, Guarding, Other: - RUQ pain on palpation; + murphys sign. Negative: CVA Tenderness (R), CVA Tenderness (L), Hepatomegaly, McBurney's Point Tenderness, Peritoneal Signs, Splenomegaly Musculoskeletal: Positive: Normal, Strength/ROM Intact Neurological: Positive: Speech Normal Psychiatric: Positive: Normal Diagnostics - Vital Signs Vital Signs Temp Pulse Resp BP Pulse Ox 02/28/17 08:05 71 100 02/28/17 08:04 126/75 02/28/17 07:59 98.2 F 67 20 126/75 99 - Laboratory Result Diagrams: 02/28/17 08:20 02/28/17 08:20 Lab Statement: Any lab studies that have been ordered have been reviewed, and results considered in the medical decision making process. Abdominal Pain Fem Course/Dx - Course Course Of Treatment: Patien evaluated for RUQ pain. Cardiac history. EKG shows sinus rhythm, inferior infarct, age indeterminate, borderline ST elevation, anterior leads - compared to old EKG's - this is stable with no changes. IMPRESSION: NO ACUTE SONOGRAPHIC PATHOLOGY OF THE VISUALIZED PORTION OF THE ABDOMEN. Discussed findings with patient. Discussed possible pathologies for his pain. Likely a muscular pain vs. liver pain from NORCO's. Unlikely GB. Provider states they are willing to CT scan and patient would like to defer at this time. His pain is improved with morphine - 8 mg total given while in ED. He agrees to return and I have given him strict retrun precautions as we do not have an etiology of his pain. His VS are able and there is no suspician of infection. While he had +monroy's sign for me, he had not US monroy's sign. Discussed at length his return precautions and other pathologies, and he remains steadfast that he would like to be DC home and willing to return for any worsening symptoms. He is encouraged to take Ibuprofen 600mg three times daily intermittently between his dosage of pain managemet. This may help with some of the pain from his hand which is likely inflamed. He has not been taking ibuprofen consistently he states. He will follow up on Friday as scheduled with Dr. Conley. - Diagnoses Differential Diagnosis/HQI/PQRI: Appendicitis, Bowel Obstruction, Gall Bladder Disease, Pancreatitis, Renal Colic Provider Diagnoses: Right upper quadrant abdominal pain Discharge - Discharge Plan Condition: Stable Disposition: HOME Patient Education Materials: Acute Abdominal Pain (ED) Referrals: Amol Casillas MD [Primary Care Provider] - Additional Instructions: Please follow up with your PCP in 2-3 days as needed You have strict return precautions: If you develop any worsening or changing abdominal pain, you need to return IMMEDIATELY Please begin to take Ibuprofen 600mg three times daily - do not miss a dose as it has a cumulative effect. Try to reduce your intake of NORCO to 1 every 4 hours or 2 every 6-8 hours. We have ruled out gallbladder pathology as the US was negative for any acute findings Lab work all WNL today. Your EKG was compared to last visit and no changes have occurred We have discussed a CT scan in which you would like to defer at this time to await for improvement or worsening of symptoms. BLAND diet for now including rice, chicken noodle soup, bananas, applesauce. Nothing spicy. Follow up with Dr. Larsen as scheduled next week.
[2017-02-28 09:51] LABS: Hematocrit 44 % (42-52); Hemoglobin 15.6 g/dl (14.0-18.0); Mean Corpuscular HGB Conc 36 g/dl (31-36); Mean Corpuscular Hemoglobin 31 pg (27-31); Mean Corpuscular Volume 87 fL (80-94); Mean Platelet Volume 8 um3 (7.4-10.4); Red Blood Count 5.08 10^6/ul (4.0-5.4); Red Cell Distribution Width 13 % (10.5-15); White Blood Count 10.6 10^3/ul (3.5-10.8)
[2017-02-28 10:16] LABS: Albumin 4.5 g/dL (3.2-5.2); BUN/Creatinine Ratio 17.8 (8-20); C Reactive Protein 12.48 mg/L (< 5.00); Calcium 9.5 mg/dL (8.6-10.3); EGFR African American 130.2 (>60); EGFR Non-African American 101.2 (>60); Globulin 2.7 g/dL (2-4); Potassium 3.6 mmol/L (3.5-5.0); Total Bilirubin 0.6 mg/dL (0.2-1.0); Total Protein 7.2 g/dL (6.4-8.9)
[2017-02-28 12:18] VITALS: BP 156/67
--- NOTE | 2017-02-28 12:21 | RAD ---
HISTORY: Right upper quadrant pain COMPARISONS: None TECHNIQUE: Multiple transverse and longitudinal ultrasound images were obtained of the right upper quadrant of the abdomen using grayscale and color Doppler imaging. FINDINGS: LIVER: The liver is normal in shape, size, contour, and echogenicity. There are no focal parenchymal masses. There is normal hepatopedal flow of the portal vein on Doppler imaging. BILIARY TREE: There is no intrahepatic or extrahepatic biliary dilatation. The common duct measures 0.4 cm. GALLBLADDER: The gallbladder is well-visualized. There is mild sludge within the gallbladder. There is no cholelithiasis, gallbladder wall thickening, pericholecystic fluid, or sonographic Moreno sign. PANCREAS: The pancreas is obscured by overlying bowel gas. RIGHT KIDNEY: The right kidney is normal in shape, size, contour, and echogenicity. There is no hydronephrosis or nephrolithiasis. The right kidney measures 12 x 5.2 x 5.4 cm. AORTA AND IVC: The aorta and IVC are unremarkable. FLUID: There are no pleural effusions. There is no free fluid within the hepatorenal recess. OTHER FINDINGS: None. IMPRESSION: NO ACUTE SONOGRAPHIC PATHOLOGY OF THE VISUALIZED PORTION OF THE ABDOMEN.
== END | disposition home or self-care (01) ==
LOC: ED 07:53
DX: R10.11 Right upper quadrant pain (principal); F17.210 Nicotine dependence, cigarettes, uncomplicated; I25.10 Atherosclerotic heart disease of native coronary artery without angina pectoris; Z86.718 Personal history of other venous thrombosis and embolism; I10 Essential (primary) hypertension; I25.2 Old myocardial infarction
CPT/HCPCS: 36415; 76705; 80053; 82150; 82550; 83605; 83690; 84484; 85025; 86140; 93005; 96360; 96374; 96375; 99282; J2270; J2405